=== PATIENT | female | born 1990 | race Caucasian/White ===

== ENCOUNTER → 2018-02-20 09:58 | Outpatient (CLI) | payer OTHER, SELFPAY ==
[2018-02-20 10:28] LABS: Add Manual Diff / Slide Review NO; Basophils Percent Auto 1.4 % (0-2); Eosinophils Percent Auto 6.6 % (2-4); Hematocrit 38.8 % (36-46); Hemoglobin 13.2 g/dL (12.0-16.0); Lymphocytes Percent Auto 25.7 % (25-40); Mean Corpuscular HGB Conc 34.1 % (30-36); Mean Corpuscular Volume 90.8 fL (80-100); Monocytes Percent Auto 8.2 % (3-14); Neutrophils Absolute Auto 3500 /uL (3000-5900); Neutrophils Percent Auto 58.1 % (50-75); Platelet Count 339 X10^3/uL (150-400); Red Blood Cell Count 4.27 X10^6/uL (4.0-5.2); Red Cell Distribution Width 13.1 % (11.6-14.8)
[2018-02-20 10:37] LABS: Hemoglobin A1C% w Est Avg Glu 4.8 % (4.0-6.0)
[2018-02-20 11:02] LABS: Alanine Aminotransferase 21 IU/L (9-52); Albumin 4.6 g/dL (3.5-5.0); Albumin Globulin Ratio 1.4 (1.0-2.8); Alkaline Phosphatase 49 U/L (38-126); Aspartate Aminotransferase 19 IU/L (14-36); BUN Creatinine Ratio 26.7 (6-22); Bilirubin Total 0.7 mg/dL (0.2-1.3); Blood Urea Nitrogen 16 mg/dL (7-17); Calcium 9.1 mg/dL (8.4-10.2); Carbon Dioxide 26 mmol/L (22-32); Chloride 105 mmol/L (98-107); Cholesterol 170 mg/dL (140-199); Estimated Glomerular Filt Rate > 60.0 mL/min (>60); Globulin 3.2 g/dL (1.7-4.1); Glucose 97 mg/dL (70-100); HDL Cholesterol 75 mg/dL (40-60); HEMOLYSIS < 15 (0-50); LDL Cholesterol Calculated 85 mg/dL (<100); Potassium 4.2 mmol/L (3.4-5.1); Sodium 144 mmol/L (137-145); Total Protein 7.8 g/dL (6.3-8.2); Triglycerides 48 mg/dL (35-150)
== END ==
PROVIDERS: PCP Family Medicine; Visit Provider Family Medicine
DX: Z00.00 Encounter for general adult medical examination without abnormal findings (principal)
CPT/HCPCS: 36415; 80053; 80061; 83036; 85025

== ENCOUNTER → 2018-03-21 09:08 | Outpatient (CLI) | payer OTHER, SELFPAY ==
--- NOTE | 2018-03-21 09:10 | DI.US.S_ITS ---
PROCEDURE: US ABDOMEN COMPLETE INDICATIONS: ABDOMINAL PAIN TECHNIQUE: Real-time scanning was performed of the abdominal and retroperitoneal organs, with image documentation. COMPARISON: None. FINDINGS: Liver: Liver is normal in size and homogeneous in echotexture. Gallbladder: Gallbladder is clear with normal wall thickness. Biliary ducts: Intrahepatic bile ducts are non-dilated. Extrahepatic bile duct caliber measures 4 mm. Normal is 6-7 mm or less in diameter, or 10 mm or less post-cholecystectomy. Pancreas: Visualized portions of the pancreas are sonographically normal. Spleen: Spleen is normal in size and homogeneous in echotexture. Kidneys: Kidneys are normal in size and echotexture. Right kidney measures 12.1 cm long; left kidney measures 13.2 cm long. No hydronephrosis or nephrolithiasis. No solid masses. Aorta: Visualized aorta is normal in caliber at less than 3 cm. Iliacs: Proximal common iliac arteries are normal in caliber at less than 2.5 cm. IVC: Intrahepatic inferior vena cava is patent. Miscellaneous: No free abdominal fluid. IMPRESSION: Normal abdomen ultrasound. Cause of abdomen pain is not seen Dictated by: Elijah Luis M.D. on 03/21/2018 at 9:54 Approved by: Elijah Luis M.D. on 03/21/2018 at 9:55
== END ==
PROVIDERS: PCP Family Medicine; Visit Provider Family Medicine
DX: R10.9 Unspecified abdominal pain (principal)
CPT/HCPCS: 76700

== ENCOUNTER → 2019-05-03 11:17 | Outpatient (CLI) | payer OTHER, SELFPAY ==
[2019-05-03 12:10] LABS: Hemoglobin 13.4 g/dL (12.0-16.0); Mean Corpuscular HGB Conc 34.4 % (30-36); Mean Corpuscular Hemoglobin 30.5 PG (26-34); Mean Corpuscular Volume 88.5 fL (80-100); Platelet Count 299 X10^3/uL (150-400); Red Blood Cell Count 4.41 X10^6/uL (4.0-5.2); Red Cell Distribution Width 12.7 % (11.6-14.8); White Blood Cell Count 5.9 X10^3/uL (4.5-11.0)
[2019-05-03 12:37] LABS: Alanine Aminotransferase 12 IU/L (9-52); Albumin 4.6 g/dL (3.5-5.0); Albumin Globulin Ratio 1.6 (1.0-2.8); Alkaline Phosphatase 61 U/L (38-126); Aspartate Aminotransferase 20 IU/L (14-36); BUN Creatinine Ratio 21.7 (6-22); Bilirubin Total 0.8 mg/dL (0.2-1.3); Blood Urea Nitrogen 13 mg/dL (7-17); Calcium 9.5 mg/dL (8.4-10.2); Carbon Dioxide 26 mmol/L (22-32); Chloride 101 mmol/L (98-107); Cholesterol 173 mg/dL (140-199); Estimated Glomerular Filt Rate > 60.0 mL/min (>60); Globulin 2.9 g/dL (1.7-4.1); Glucose 89 mg/dL (70-100); HDL Cholesterol 67 mg/dL (40-60); HEMOLYSIS < 15 (0-50); LDL Cholesterol Calculated 97 mg/dL (<100); Potassium 4.7 mmol/L (3.4-5.1); Sodium 138 mmol/L (137-145); Total Protein 7.5 g/dL (6.3-8.2); Triglycerides 43 mg/dL (35-150)
== END ==
PROVIDERS: PCP Family Medicine; Visit Provider Nurse Practitioner Family
DX: Z00.00 Encounter for general adult medical examination without abnormal findings (principal); Z13.6 Encounter for screening for cardiovascular disorders
CPT/HCPCS: 36415; 80053; 80061; 85027

== ENCOUNTER → 2022-09-16 10:53 | Outpatient (CLI) | payer OTHER, SELFPAY | PROVIDERS: PCP Family Medicine; Visit Provider Registered Nurse | DX: R10.9 Unspecified abdominal pain (principal) | CPT/HCPCS: 87077; 87086; 87186 ==

== ENCOUNTER → 2025-07-20 15:09 | Outpatient (CLI) | payer BC, SELFPAY | PROVIDERS: PCP Family Medicine; Visit Provider Registered Nurse | DX: M54.50 Low back pain, unspecified (principal) | CPT/HCPCS: 87086 ==

== ENCOUNTER 2025-07-20 15:24 | Emergency (ER) | payer BC, SELFPAY ==
[2025-07-20] VITALS (7 sets, daily range): BP systolic 126–155; BP diastolic 80–91; PULSE 75–91; RESP 18; TEMP 36.6; O2SAT 99–100; BMI 24.3
--- NOTE | 2025-07-20 19:49 | ED.ABDPAIN ---
HPI - Abdominal Pain General Chief Complaint: Abdominal Pain Stated Complaint: back px, chills, sweaty since yesterday Time Seen by Provider: 07/20/25 16:16 Source: patient Mode of arrival: Ambulatory History of Present Illness HPI narrative: 35-year-old female with no prior medical history no abdominal surgeries presents with right CVA tenderness that is wrapped around radiating to her right lower quadrant area. This pain that started yesterday a.m. and is progressively gotten worse. Patient denies any urinary symptoms or other symptoms. Related Data Previous Rx's ?Medication ?Instructions ?Recorded cephalexin 500 mg capsule 500 mg PO BID #14 caps 07/20/25 Allergies Allergy/AdvReac Type Severity Reaction Status Date / Time No Known Allergies Allergy Uncoded 07/20/25 14:59 Review of Systems Review of Systems ROS Unobtainable: All systems reviewed & are unremarkable except as noted in HPI and below Patient History Social History Smoking Status: Never smoker Smoking Status: Never smoker Exam Narrative Exam Narrative: General: Patient appears to be in no acute distress, acting appropriately Head: normocephalic, atraumatic, HEENT: Pupils equal round reactive, eyes tracking well, neck supple, no JVD Heart: regular rate and rhythm, no murmurs, rubs, or gallops heard Lungs: clear to auscultation, no adventitious sounds Abdomen: soft , nontender, Mildly tender to palpation right lower quadrant. Right CVA tenderness. Neurological: no focal neurological signs, moving all extremities well, alert and oriented x3, Psych: good judgment ,good insight, mood is normal. Initial Vital Signs Initial Vital Signs: Vital Signs Temperature 98 F 07/20/25 15:36 Pulse Rate 88 07/20/25 15:36 Respiratory Rate 18 07/20/25 15:36 Blood Pressure 155/91 H 07/20/25 15:36 Pulse Oximetry 99 07/20/25 15:36 Oxygen Delivery Method Room Air 07/20/25 15:36 Course Orders Ordered: ED Orders 07/20/25 19:52 CT abdomen pelvis wo con Stat 07/20/25 19:55 Complete Blood Count AUTO DIFF Stat Comprehensive Metabolic Panel Stat Lipase Stat 07/20/25 20:40 Urine Culture Stat Urine Microscopic Stat Discontinued Medications Cephalexin HCl (Cephalexin 250 Mg Capsule) 500 mg PO NOW ONE Stop: 07/20/25 21:51 Last Admin: 07/20/25 22:02 Dose: 500 mg Documented By: YOKO Ketorolac Tromethamine (Ketorolac 30 Mg/Ml Vial) 15 mg IV NOW ONE Stop: 07/20/25 19:52 Last Admin: 07/20/25 20:10 Dose: 15 mg Documented By: YOKO Ondansetron HCl (Ondansetron 4 Mg/2 Ml Inj) 4 mg IV NOW PRN PRN Reason: Nausea And Vomiting Last Admin: 07/20/25 20:07 Dose: 4 mg Documented By: YOKO Ondansetron HCl (Ondansetron 4 Mg Odt) 4 mg PO NOW PRN PRN Reason: Nausea And Vomiting Reevaluation(s) Reevaluation #1: Pain is improved with some Toradol. Vital Signs Vital signs: Vital Signs - 8 hr 07/20/25 22:03 07/20/25 22:03 Pulse Rate 87 Blood Pressure 126/83 Pulse Oximetry 99 MDM - Abdominal Pain Lab Data 07/20/25 19:55 07/20/25 19:55 Labs: Lab Results 07/20/25 07/20/25 Range/Units 19:55 20:40 WBC 8.7 (4.5-11.0) X10^3/uL RBC 4.23 (4.0-5.2) X10^6/uL Hgb 13.5 (12.0-16.0) g/dL Hct 39.1 (36-46) % MCV 92.4 (80-100) fL MCH 32.0 (26-34) PG MCHC 34.7 (30-36) % RDW 12.6 (11.6-14.8) % Plt Count 316 (150-400) X10^3/uL Neut % (Auto) 70.9 (50-75) % Lymph % (Auto) 20.3 L (25-40) % [place] % (Auto) 6.5 (3-14) % Eos % (Auto) 1.6 L (2-4) % Baso % (Auto) 0.7 (0-2) % Neut # (Auto) 6200 (7261-3644) /uL Lymph # (Auto) 1800 (6544-1935) /uL [place] # (Auto) 600 (0-900) /uL Eos # (Auto) 100 (0-450) /uL Baso # (Auto) 100 (0-100) /uL Sodium 138 (137-145) mmol/L Potassium 3.6 (3.4-5.1) mmol/L Chloride 103 (98-107) mmol/L Carbon Dioxide 24 (22-32) mmol/L BUN 8 (7-17) mg/dL Creatinine 0.55 (0.52-1.04) mg/dL Estimated GFR > 60 (>60) mL/min BUN/Creatinine Ratio 14.5 (6-22) Glucose 93 (70-99) mg/dL Calcium 9.2 (8.4-10.2) mg/dL Total Bilirubin 1.2 (0.2-1.3) mg/dL AST 29 (14-36) IU/L ALT 19 (<35) IU/L Alkaline Phosphatase 62 (38-126) U/L Total Protein 8.5 H (6.3-8.2) g/dL Albumin 5.2 H (3.5-5.0) g/dL Globulin 3.3 (1.7-4.1) g/dL Albumin/Globulin Ratio 1.6 (1.0-2.8) Lipase 59 (23-300) U/L Urine RBC None seen (0-5/HPF) Urine WBC 5-10/hpf H (0-5/HPF) Ur Squamous Epith Cells None seen (0-5/HPF) Urine Bacteria Few (2-10) H (None) Ur Culture Indicated? Specimen cultured Vol Urine Centrifuged Low vol <10ml unspun A Point of care testing: Urine Dip Bedside Urine Glucose Negative Bedside Urine Bilirubin - Negative Bedside Urine Ketone +++ 80 Urine Specific [place] 1.010 Bedside Urine Occult Blood - Negative Bedside Urine pH 7.0 Bedside Urine Protein - Negative Bedside Urine Urobilinogen - Negative Bedside Urine Nitrite - Negative Bedside Urine Leukocytes ++ [address] scan - abdomen/pelvis: Radiologist's Impression: Mild circumferential bladder wall thickening, possibly secondary to degree of bladder distention. Correlate with clinical symptoms and urinalysis. Otherwise, no acute abnormality is identified in the abdomen or pelvis. [facility] Narrative Medical decision making narrative: 35-year-old female that came in with right-sided flank pain that radiated to her right pelvic region. CT abdomen and pelvis showed no acute abnormality but did show some bladder distention. She does have a few WBCs in her urine and so was treated as if she was starting with a potential UTI. She was given Keflex to be finished over a week course twice a day. Advised to follow up for worsening symptoms Discharge Plan Departure Patient Disposition: Home Clinical Impression: UTI (urinary tract infection) Qualifiers: Urinary tract infection type: acute cystitis Hematuria presence: without hematuria Qualified Code(s): N30.00 - Acute cystitis without hematuria Instructions: DI for Urinary Tract Infection (UTI) Activity Restrictions/Additional Instructions: Take antibiotics as prescribed. If symptoms do not resolve, come back to ER. Make sure to hydrate well. Prescriptions: New cephalexin 500 mg capsule 500 mg PO BID Qty: 14 0RF Referrals: Gary Alvarado MD [Primary Care Provider, Family Practice] Stand Alone Forms: Patient Portal/API
--- NOTE | 2025-07-20 19:52 | DI.CT.S_ITS ---
PROCEDURE: CT ABDOMEN PELVIS WO CON INDICATIONS: r cva tenderness TECHNIQUE: CT of the abdomen and pelvis was obtained without intravenous contrast. Coronal and sagittal reformats were performed. For radiation dose reduction, the following was used: automated exposure control, adjustment of mA and/or kV according to patient size. COMPARISON: None. FINDINGS: Image quality: Diagnostic. Lower Chest: No significant findings. ABDOMEN: Liver: No contour-deforming mass. Gallbladder: No radiopaque gallstones or wall thickening. Biliary ducts: No biliary dilation. Pancreas: No ductal dilation. Spleen: Size is within normal limits. Adrenal Glands: No adrenal nodules. Kidneys and Ureters: No hydronephrosis. No contour-deforming mass. Stomach and Bowel: Normal colonic caliber, without significant wall thickening. Colonic diverticulosis without evidence of acute diverticulitis. Normal appendix. Peritoneum: No abnormal intraperitoneal fluid. No free air. Ventral Wall: No significant hernia. Abdominal Nodes: No retroperitoneal or mesenteric adenopathy by size criteria. Vessels: Aorta and inferior vena cava are normal in size. PELVIS: Pelvic Organs: Unremarkable. Bladder: Mild circumferential bladder wall thickening, possibly secondary to degree of bladder distention. Pelvic Nodes: No enlarged lymph nodes. Miscellaneous: No inguinal hernias are seen. Bones: No aggressive osseous abnormality. IMPRESSION: Mild circumferential bladder wall thickening, possibly secondary to degree of bladder distention. Correlate with clinical symptoms and urinalysis. Otherwise, no acute abnormality is identified in the abdomen or pelvis. Dictated by: Gladis Moya M.D. on 07/20/2025 at 21:18 Approved by: Gladis Moya M.D. on 07/20/2025 at 21:23
[2025-07-20 20:03] LABS: Add Manual Diff / Slide Review NO; Hematocrit 39.1 % (36-46); Hemoglobin 13.5 g/dL (12.0-16.0); Lymphocytes Absolute Auto 1800 /uL (1100-4500); Mean Corpuscular HGB Conc 34.7 % (30-36); Mean Corpuscular Hemoglobin 32.0 PG (26-34); Mean Corpuscular Volume 92.4 fL (80-100); Platelet Count 316 X10^3/uL (150-400)
[2025-07-20] MEDS: ONDANSETRON 4 MG/2 ML INJ IV (20:07)
[2025-07-20] MEDS: KETOROLAC 30 MG/ML VIAL 15 MG IV (20:10)
[2025-07-20 20:15] LABS: Alanine Aminotransferase 19 IU/L (<35); Albumin 5.2 g/dL (3.5-5.0); Albumin Globulin Ratio 1.6 (1.0-2.8); Alkaline Phosphatase 62 U/L (38-126); Blood Urea Nitrogen 8 mg/dL (7-17); Calcium 9.2 mg/dL (8.4-10.2); Carbon Dioxide 24 mmol/L (22-32); Chloride 103 mmol/L (98-107); Estimated Glomerular Filt Rate > 60 mL/min (>60); Globulin 3.3 g/dL (1.7-4.1); Glucose 93 mg/dL (70-99); HEMOLYSIS < 15 (0-50); Lipase 59 U/L (23-300); Potassium 3.6 mmol/L (3.4-5.1); Sodium 138 mmol/L (137-145); Total Protein 8.5 g/dL (6.3-8.2)
[2025-07-20 21:14] LABS: Culture Indicated Urine Specimen Cultured
== END 2025-07-20 22:07 | disposition home or self-care (01) ==
PROVIDERS: Emergency Provider Family Medicine; PCP Family Medicine
DX: N30.00 Acute cystitis without hematuria (principal)
CPT/HCPCS: 36415; 74176; 80053; 81003; 81015; 83690; 85025; 87077; 87086; 87147; 96374; 96375; 99284; J1885; J2405